=== PATIENT | male | born 1950 | race Caucasian/White ===

== ENCOUNTER → 2017-08-09 12:38 | Outpatient (CLI) | payer MEDICARE, OTHER | END | disposition home or self-care (01) | LOC: D.US 07-29 13:00 | DX: R60.0 Localized edema (principal) ==

== ENCOUNTER → 2018-01-24 08:56 | Outpatient (CLI) | payer MEDICARE, OTHER | END | disposition home or self-care (01) | LOC: D.RAD 08:56 | DX: J20.9 Acute bronchitis, unspecified (principal) ==